=== PATIENT | male | born 1955 | race Caucasian/White ===

== ENCOUNTER → 2019-05-20 | Outpatient (CLI) | payer OTHER, SELFPAY ==
[2019-05-20 10:18] VITALS: BMI 30.7
--- NOTE | 2019-05-20 10:25 | RAD_ITS ---
STUDY: X-RAY - RIGHT SHOULDER REASON FOR EXAM: Chronic shoulder pain. TECHNIQUE: 3 view(s) of the shoulder. COMPARISON: None. FINDINGS: Normal glenohumeral articulation. There is acromioclavicular arthrosis with an undersurface osteophyte of the distal clavicle. Normal acromion. Normal humeral head and visualized proximal humerus. There is ossification of the coracoclavicular ligaments suggestive of remote injury. Normal visualized pulmonary apex. 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 Electronically Signed: Cabrera Kerns MD at 12:09 EST Tel , Service support ,
== END | disposition home or self-care (01) ==
LOC: HPRAD 10:25
PROVIDERS: PCP Internal Medicine; Referring Provider Orthopaedic Surgery; Visit Provider Orthopaedic Surgery
DX: M25.511 Pain in right shoulder (principal); S49.91XA Unspecified injury of right shoulder and upper arm, initial encounter
CPT/HCPCS: 73030

== ENCOUNTER 2020-06-29 12:00 | Outpatient (RCR) | payer MEDICARE, SELFPAY ==
[2019-05-20 10:18] VITALS: BMI 30.7
[2020-06-29] MEDS: COVID-19 VACC, MRNA(PFIZER)/PF 30 MCG/0.3 ML SYRINGE IM (12:09)
[2020-07-20] MEDS: COVID-19 VACC, MRNA(PFIZER)/PF 30 MCG/0.3 ML SYRINGE IM (12:09)
== END 2020-09-26 23:59 ==
LOC: IMMUN 12:00
PROVIDERS: PCP Student in an Organized Health Care Education/Training Program; Visit Provider Family Medicine
DX: Z23 Encounter for immunization (principal)
CPT/HCPCS: 0001A; 0002A; 91300

== ENCOUNTER 2021-12-10 10:43 | Emergency (ER) | payer MEDICARE, OTHER, SELFPAY ==
[2021-12-10 10:43] VITALS: BP 149/103; PULSE 70; RESP 16; TEMP 36.2; O2SAT 96; BMI 32.3
--- NOTE | 2021-12-10 11:10 | EKG12_ITS ---
Test Reason : CHEST PAIN Blood Pressure : / mmHG Vent. Rate : 068 BPM Atrial Rate : 068 BPM P-R Int : 156 ms QRS Dur : 094 ms QT Int : 404 ms P-R-T Axes : 035 004 010 degrees QTc Int : 429 ms Normal sinus rhythm Possible Inferior infarct , age undetermined Cannot rule out Anterior infarct , age undetermined Abnormal ECG Confirmed by KATHY MICHELLE, AKUA ([id number]), staff editor ANDRZEJ WHITE ([id number]) on 12/12/2021 11:18:42 AM Referred By: Confirmed By:AKUA CHAVEZ MD
--- NOTE | 2021-12-10 11:12 | EDS_ITS ---
HPI History of Present Illness Chief Complaint: Chest Pain Informant: patient Onset/Context/Timing Onset: Today Narrative Narrative: Patient reports waking at 6 AM this morning and felt like his heart was racing. It lasted just a short time. He also had some numbness in his left arm but states he often will sleep on his arm and is not sure is related to his heart rate or sleeping on his arm. At this time he does feel improved. No recent change in activity tolerance. [facility] Medical History Anxiety Bundle branch block Glaucoma HTN (hypertension) Hyperlipemia Hypothyroidism Sleep apnea Testosterone deficiency Home Medications aspirin 81 mg tablet,delayed release 81 mg PO DAILY@0800 03/29/15 [History Last Taken Unknown] amlodipine 5 mg tablet PO 05/20/19 [History Last Taken Unknown] bupropion HCl 75 mg tablet PO 05/20/19 [History Last Taken Unknown] dorzolamide 22.3 mg-timolol 6.8 mg/mL eye drops ophthalmic (eye) 05/20/19 [History Last Taken Unknown] fluoxetine 20 mg capsule mg PO 05/20/19 [History Last Taken Unknown] levothyroxine 112 mcg tablet PO 05/20/19 [History Last Taken Unknown] meloxicam 15 mg tablet PO 05/20/19 [History Last Taken Unknown] testosterone 1 % (25 mg/2.5 gram) transdermal gel packet transdermal 05/20/19 [History Last Taken Unknown] valsartan 80 mg tablet PO 05/20/19 [History Last Taken Unknown] Allergy/AdvReac Type Severity Reaction Status Date / Time brimonidine AdvReac Other Verified 12/10/21 10:47 Social History Smoking Status: Never smoker ROS ROS ED Constitutional Constitutional ED: Denies chills or fever(s) Eyes Eyes: Denies change in vision or discharge from eye(s) ENT ENT ED: Denies discharge from eye(s), rhinorrhea or sore throat Cardiovascular Cardiovascular: Reports palpitations and racing heartbeat; Denies chest pain Respiratory/Chest Respiratory/Chest: Denies cough or dyspnea Gastrointestinal Gastrointestinal: Denies abdominal pain, diarrhea, nausea or vomiting Genitourinary Genitourinary ED: Denies difficulty urinating or dysuria Musculoskeletal Musculoskeletal: Reports extremity pain; Denies back pain Integumentary Denies Abrasions or rash Neurologic Neurologic: Denies headache(s) or weakness Allergic/Immunologic Allergic/Immunologic ED: Denies lip swelling or urticaria EXAM Physical Exam Const Vital Signs: 12/10/21 10:43 12/10/21 11:15 12/10/21 11:53 Temperature 97.2 F L Temperature Source Temporal Pulse Rate 70 Respiratory Rate 16 Respiratory Effort Normal Non-Labored Blood Pressure 149/103 H Blood Pressure Mean 118 Pulse Ox 96 96 Oxygen Delivery Method Room Air Room Air Positive well nourished and well developed General Appearance ED: well developed HEENT Reports normocephalic and head/scalp atraumatic Eyes PERRL and EOMs intact bilaterally Neck supple Chest Wall inspection of chest normal and palpation of chest normal Resp normal respiratory effort and clear to auscultation bilaterally Cardio regular rate and regular rhythm GI normal to inspection, nondistended, normoactive bowel sounds Palpation: soft Extremity normal to inspection Neuro oriented x3 and no sensory deficits noted Sensorium / Orientation: alert Motor Exam: strength 5/5 throughout Psych mental status grossly normal Skin no rashes or lesions noted MDM MDM MDM Narrative Medical decision making narrative: Patient given aspirin on arrival. EKG, chest x-ray, lab work obtained. Lab Data Attestation: I reviewed the patient's lab results. Labs: Laboratory Results - last 24 hr 12/10/21 12/10/21 12/10/21 11:15 11:15 13:32 WBC 5.7 RBC 5.52 Hgb 17.7 H Hct 51.8 MCV 93.8 MCH 32.1 H MCHC 34.2 RDW Std Deviation 41.1 RDW Coeff of Ankur 12.0 Plt Count 176 MPV 10.2 Immature Gran % (Auto) 0.700 Neut % (Auto) 58.3 Lymph % (Auto) 24.3 Evans % (Auto) 12.8 H Eos % (Auto) 3.2 Baso % (Auto) 0.7 Absolute Neuts (auto) 3.3 Absolute Lymphs (auto) 1.38 Nucleated RBC % 0 Sodium 140 Potassium 3.8 Chloride 106 Carbon Dioxide 30.0 Anion Gap 4 L BUN 16 Creatinine 0.93 Estim Creat Clear Calc 78.49 Est GFR (MDRD) Af Amer 103 Est GFR (MDRD) Non-Af 85 BUN/Creatinine Ratio 17.1 Glucose 103 Calcium 8.9 Troponin I High Sens 5 5 TSH 0.82 Radiography Chest X-Ray - ED: 1 View, Read by ED Physician, Normal, Heart, Lungs and Mediastinum Diagnostic Testing: Clinical Impression(s) from Imaging Studies Chest X-Ray 12/10/21 11:30 IMPRESSION: Normal x-ray examination of the chest. Electronically Signed: Emiliano Carter MD at 12:03 EDT , EKG Initial EKG: Attestation: I personally reviewed and interpreted this EKG as follows: Interpretation: Sinus Rhythm (Sinus at 66 with no acute ischemia. There are some anterior and inferior changes noted when compared to prior study from 2004.) Treatment and Re-Evaluation Narrative: On repeat evaluation patient resting comfortably. He has had no further episodes of racing heart or chest pressure. Work-up at this time is unremarkable with 2 negative troponins. Chest x-ray per my interpretation shows no acute abnormalities. Patient is reassured with these findings and is comfortable discharge to home. Return instructions have been provided. Discharge Plan Triage Chief Complaint: Chest Pain ED Provider: Cori Jones Dx/Rx/DC Orders Clinical Impression: Palpitations Instructions: ED Palpitations Prescriptions: No Action testosterone 1 % (25 mg/2.5gram) gel in packet transdermal fluoxetine 20 mg capsule PO valsartan 80 mg tablet PO amlodipine 5 mg tablet PO meloxicam 15 mg tablet PO dorzolamide-timolol 22.3-6.8 mg/mL drops OPHTHALMIC levothyroxine 112 mcg tablet PO bupropion HCl 75 mg tablet PO aspirin 81 MG tablet 81 mg PO DAILY@0800 Primary Care Provider: Vic Espana Referrals: Vic Espana, [Primary Care Provider] - 1-2 Weeks Disposition Disposition: Home, Self Care
[2021-12-10 11:15] VITALS: O2SAT 96
[2021-12-10] MEDS: Aspirin 81 MG TAB.CHEW 324 MG PO (11:20)
[2021-12-10 11:21] LABS: Absolute Lymphocyte Count 1.38 X10^3/uL (0.83-4.51); Absolute Neutrophil Count 3.3 X10^3/uL (2.0-7.7); Basophil# 0.04 X10^3/uL; Basophil% 0.7 % (0-1); Eosinophil# 0.18 X10^3/uL; Eosinophils% 3.2 % (0-5); Hematocrit 51.8 % (40-54); Hemoglobin 17.7 g/dL (13.0-16.5); Lymphocyte # 1.38 X10^3/ul (0.83-4.51); Lymphocyte % 24.3 % (19-41); Mean Corp Hgb Conc 34.2 g/dL (32-36); Mean Corpuscular Hgb 32.1 pg (27.0-32.0); Mean Corpuscular Volume 93.8 fL (80-94); Mean Platelet Vol. 10.2 fl (6.2-12.0); Monocyte# 0.73 X10^3/uL; Monocyte% 12.8 % (0-10); NRBC Flagged by Analyzer 0 % (0-5); Neutrophil # 3.32 X10^3/uL (2.7-7.7); Neutrophil % 58.3 % (47-70); Platelet Count 176 K/mm3 (150-450); RBC Distribution Width SD 41.1 fl (35.1-43.9); Red Blood Count 5.52 M/mm3 (4.6-6.2); White Blood Count 5.7 K/mm3 (4.4-11.0)
--- NOTE | 2021-12-10 11:30 | RAD_ITS ---
STUDY: X-RAY CHEST REASON FOR EXAM: Male, 66 years old. Chest pain TECHNIQUE: Single AP portable view of the chest. COMPARISON: None. FINDINGS: EKG electrodes are seen. The lungs are clear and expanded. There is no demonstrated pleural abnormality. Normal size heart. Normal mediastinum and suzan. Normal visualized pulmonary arteries. There is atherosclerotic tortuosity of the aortic arch and descending thoracic aorta. Normal visualized thoracic spine. Normal visualized ribs, clavicles, and shoulders. There is no demonstrated abnormality of the visualized soft tissue structures of the upper abdomen. RAD/Chest 1 View (Portable) IMPRESSION: Normal x-ray examination of the chest. Electronically Signed: Emiliano Carter MD at 12:03 EDT ,
[2021-12-10 11:45] LABS: Anion Gap 4 (5-15); BUN 16 mg/dL (7-18); BUN/Creat Ratio 17.1 RATIO (10-20); Calcium,Total 8.9 mg/dL (8.5-10.1); Chloride 106 mmol/L (98-107); Creatinine, Serum 0.93 mg/dL (0.70-1.30); EST Glomerular Filtration Rate 85 mL/min (>60); Est Glom Filt Rate - Afr Amer 103 mL/min (>60); Estimated Creatinine Clearance 78.49 ml/min; Glucose 103 mg/dL (74-106); Potassium 3.8 mmol/L (3.5-5.1); Sodium Level 140 mmol/L (136-145); Thyroid Stim Hormone (TSH) 0.82 uIU/mL (0.358-3.74); Troponin-I HS (w/2H Reflex) 5 pg/mL (3.0-78.0)
[2021-12-10 12:00] VITALS: BP 146/98
[2021-12-10 13:00] VITALS: BP 139/99
[2021-12-10 13:19] LABS: Reflex Troponin-HS? (from REC) Y
[2021-12-10 13:57] LABS: Troponin-I HS 5 pg/mL (3.0-78.0)
[2021-12-10 14:00] VITALS: BP 142/86
[2021-12-10 14:49] VITALS: RESP 18
== END 2021-12-10 14:49 | disposition home or self-care (01) ==
PROVIDERS: Emergency Provider Emergency Medicine; PCP Student in an Organized Health Care Education/Training Program; Visit Provider Emergency Medicine
DX: R00.2 Palpitations (principal); I10 Essential (primary) hypertension; E78.5 Hyperlipidemia, unspecified; F41.9 Anxiety disorder, unspecified; E03.9 Hypothyroidism, unspecified; Z79.82 Long term (current) use of aspirin; Z79.899 Other long term (current) drug therapy
CPT/HCPCS: 71045; 80048; 84443; 84484; 85025; 93005; 99285; A4216

== ENCOUNTER → 2025-01-19 | Outpatient (CLI) | payer MEDICARE, OTHER, SELFPAY ==
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
== END | disposition home or self-care (01) ==
PROVIDERS: PCP Student in an Organized Health Care Education/Training Program; Referring Provider Orthopaedic Surgery Sports Medicine; Visit Provider Orthopaedic Surgery Sports Medicine
DX: M25.511 Pain in right shoulder (principal)
CPT/HCPCS: 73221

== ENCOUNTER 2025-03-22 11:30 | Outpatient (RCR) | payer MEDICARE, OTHER, SELFPAY ==
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
--- NOTE | 2025-05-16 10:28 | HP.PT.NRP ---
Patient Information Patient Information: MARY GIBSON was seen in my office for initial evaluation on 02/22/25. The following Plan of Care was established for this patient: POC Established Initial Frequency: 2x /Week Initial Duration: 4-6 Weeks Anticipated Interventions Patient/Client Instruction: Educate patient on: Condition and Plan of Care For the Purpose of:: To improve self management Therapeutic Exercise to Include: Strength training, Endurance training, Active ROM and Scapular Strength/Stabilization For the Purpose of:: To decrease pain, To increase ROM and To improve muscle performance and motor function Cryotherapy (ice pack, ice massage): Yes For the Purpose of:: To decrease pain Last Seen Last Seen: This patient was last seen in our office . Pertinent comments regarding their Physical therapy will appear below: Pt has not returned in greater than 30 days and is discontinued at this time. At this point I will be discontinuing this patient from physical therapy. I would be happy to see this patient again in the future if found appropriate by the physician. Thank you! Travis Humphries, PT, ATC Balance/Gait/Functional tests Balance/Special Test Scores Quick DASH Score: 38.6350
== END 2025-03-22 19:00 | disposition home or self-care (01) ==
LOC: PT 11:30
PROVIDERS: PCP Student in an Organized Health Care Education/Training Program; Referring Provider Orthopaedic Surgery Sports Medicine; Visit Provider Orthopaedic Surgery Sports Medicine
DX: M25.511 Pain in right shoulder (principal)
CPT/HCPCS: 97110; 97161